=== PATIENT | male | born 1995 | race Caucasian/White ===

== ENCOUNTER 2024-06-30 03:09 | Emergency (ER) | payer BC, MEDICARE, SELFPAY ==
[2024-06-30 03:13] VITALS: BP 147/104
[2024-06-30] MEDS: ZOFRAN ODT (ORALLY DISINTEGRATING) 4 MG PO (03:17)
== END 2024-06-30 06:50 ==
LOC: EMR 03:09
PROVIDERS: EMERGENCY PHYSICIAN Emergency Medicine
DX: R11.2 Nausea with vomiting, unspecified (principal); Z53.21 Procedure and treatment not carried out due to patient leaving prior to being seen by health care provider